=== PATIENT | female | born 1985 | race Two or more races ===

== ENCOUNTER 2019-03-11 13:59 | Emergency (ER) | payer SELFPAY ==
[~2019-03-11] VITALS: Ht 167.6 cm; Wt 126.8 kg
[2019-03-11] MEDS ORDERED: GLIP5 PO (14:21)
[2019-03-11] MEDS ORDERED: METF-960 PO (14:21)
[2019-03-11 14:34] LABS: GLUCOSE,POINT OF CARE 272 MG/DL (70-110)
[2019-03-11 15:19] LABS: GLUCOSE,POINT OF CARE 244 MG/DL (70-110)
[2019-03-11 15:43] VITALS: BP 140/91
== END 2019-03-11 15:44 | disposition home or self-care (01) ==
LOC: EMS 14:10
DX: E11.65 Type 2 diabetes mellitus with hyperglycemia (principal); A59.01 Trichomonal vulvovaginitis; Z88.8 Allergy status to other drugs, medicaments and biological substances; Z79.899 Other long term (current) drug therapy